=== PATIENT | female | born 1940 | race Caucasian/White ===

== ENCOUNTER 2018-11-03 05:32 | Day surgery (SDC) | payer OTHER ==
[~2018-11-03 05:32] MED LIST: ARICEPT5 MG PO; ASA81 MG PO; BUSPAR PO; COREG CR10 MG PO; LASIX20 MG PO; LEVOXYL100 MCG PO; LEXAPRO5 MG PO; MELATONIN5 M4 PO; NAMENDA10 MG PO; PRISTIQ ER100 MG PO; PROTONIX40 MG PO; SEROQUEL300 MG PO; SINGULAIR 10MG10 MG PO; TRANXENE T-TAB7.5 MG PO; ZANTAC300 MG PO
[2018-11-03] MEDS ORDERED: ULTRACET PO (08:13)
== END 2018-11-03 10:43 | disposition home or self-care (01) ==
LOC: CIR.AMB 05:32
DX: R15.9 Full incontinence of feces (principal)
CPT/HCPCS: 64590; C1767

== ENCOUNTER → 2021-09-20 | Emergency (ER) | payer OTHER ==
[~2021-09-20] VITALS: Ht 157.5 cm; Wt 63.5 kg
[~2021-09-20] MED LIST changes: +ARICEPT10 MG PO; +ATIVAN0.5 M1 PO; +CARVEDILOL12.5 MG PO; +CELEXA20 MG PO; +ELIQUIS2.5 MG PO; +FAMOTIDINE20 MG PO; +FOLIC ACID1 MG PO; +FUROSEMIDE20 MG PO; +INTEGRA PLUS C1 EACH PO; +NORVASC2.5 M1 PO; +Neurin-Sl Tablet Sl SL; +POM (MEDICAMENTO EN PO; +QUETIAPINE FUMA25 MG PO; +SEROQUEL XR300 MG PO; +SYNTHROID100 MCG PO; +ULTRACET PO
== END | disposition left against medical advice (07) ==
LOC: ER 15:04 → EDBD 17:15 → ER 17:15
DX: R10.84 Generalized abdominal pain (principal); K59.00 Constipation, unspecified; R11.10 Vomiting, unspecified; I10 Essential (primary) hypertension; Z20.822 Contact with and (suspected) exposure to COVID-19; Z88.0 Allergy status to penicillin

== ENCOUNTER 2021-10-02 05:40 | Day surgery (SDC) | payer OTHER ==
[~2021-10-02] VITALS: Ht 157.5 cm; Wt 63.5 kg
[2021-10-02] MEDS ORDERED: ULTRAM50 MG PO (08:10)
[2021-10-02] MEDS ORDERED: LEVOFLOXACIN500 MG PO (08:12)
== END 2021-10-02 10:50 | disposition home or self-care (01) ==
LOC: CIR.AMB 05:40 → EDBD 11:30
PROVIDERS: ATTEND Surgery
DX: T85.113A Breakdown (mechanical) of implanted electronic neurostimulator, generator, initial encounter (principal); R15.9 Full incontinence of feces; K62.7 Radiation proctitis; K58.0 Irritable bowel syndrome with diarrhea; K57.30 Diverticulosis of large intestine without perforation or abscess without bleeding; Z88.0 Allergy status to penicillin; Z20.822 Contact with and (suspected) exposure to COVID-19; Z93.3 Colostomy status; I10 Essential (primary) hypertension; Z95.2 Presence of prosthetic heart valve; Z79.01 Long term (current) use of anticoagulants

== ENCOUNTER 2021-11-12 09:30 | Emergency (ER) | payer OTHER ==
[~2021-11-12] VITALS: Ht 152.4 cm; Wt 81.6 kg
[~2021-11-12 09:30] MED LIST changes: +LEVOFLOXACIN500 MG PO; +ULTRAM50 MG PO
== END 2021-11-12 17:52 | disposition home or self-care (01) ==
LOC: ER 09:30
DX: R10.13 Epigastric pain (principal); N39.0 Urinary tract infection, site not specified; Z88.0 Allergy status to penicillin